=== PATIENT | female | born 1975 | race Caucasian/White ===

== ENCOUNTER 2020-10-16 18:40 | Observation (INO) ==
[2020-10-16 21:33] LABS: ABG Base Excess 1.7 MMOL/L (-2.5-2.5); ABG HCO3 25.9 MMOL/L (20-26); ABG Oxygen Saturation 97.1 % (95-100); ABG PCO2 34.2 MM HG (35-48); ABG PH 7.469 (7.35-7.45); ABG PO2 82.6 MM HG (80-95); ABG TCO2 21.5 MMOL/L (23-27); Allen Test Positive; Pt O2 Delivery Device Room Air
[2020-10-16 21:37] LABS: Basophils # 0.1 10*3/uL (0.0-0.2); Basophils % 0.6 % (0.0-0.8); Eosinophils # 0.1 10*3/uL (0.0-0.87); Eosinophils % 1.1 % (0.00-10.9); Hematocrit 43.6 VOL% (35.7-47.0); Hemoglobin 14.2 GM/DL (12.0-16.0); Immature Granulocytes % 0.4 %; Immature Granulocytes Absolute 0.05 #; Lymphocytes # 2.5 10*3/uL (1.4-4.0); Lymphocytes % 20.8 % (21.3-54.2); Mean Corpuscular HGB Conc 32.6 GM/DL (32-36); Mean Corpuscular Volume 80.1 FL (87-102); Mean Platelet Volume 9.2 FL (9.6-12.0); Monocytes % 5.8 % (1.7-12.7); Neutrophils % 71.3 % (38.7-73.9); Platelet Count 277 T/CUMM (130-400); Red Blood Count 5.44 MC/CUMM (3.8-5.5); Red Cell Distribution Width 13.1 % (9.3-17.3); White Blood Count 12.1 T/CUMM (4-12)
[2020-10-16 21:55] LABS: Bilirubin,Urine Negative (Negative); Blood, Urine Small mg/dL (Negative); Glucose,Urine (UA) Negative (Negative); Ketones,Urine Negative (Negative); Mucus,Urine Occasional /LPF (Occasional); Nitrite,Urine Negative (Negative); Protein,Urine Negative; RBC,Urine 3 /HPF (0-4); Squamous Epithelial Cell,Urine Occasional /HPF (0-10); Urine Appearance CLEAR (Clear); Urine Color Yellow (Yellow); Urine Specific Gravity 1.006 (1.001-1.035); Urine Urobilinogen < 2.0 EU/DL (0.2-1.0)
[2020-10-16 22:08] LABS: Albumin 3.5 G/DL (3.4-5.0); Bilirubin,Total 0.6 MG/DL (0.20-1.00); Osmolality,Calculated 274.5 MOS/KG (273-304); Potassium 3.5 MMOL/L (3.5-5.1); Total Protein 7.8 G/DL (6.4-8.2)
[2020-10-16] MEDS ORDERED: SODIUM CHLORIDE 0.9% 1,000 ML IV STA (22:20)
[2020-10-16] MEDS ORDERED: methylPREDNISolone SOD SUC 125 MG/2 ML VIAL IV STA (22:30)
[2020-10-16 22:34] LABS: PT Patient Result 10.9 SECS (10.5-12.0); Partial Thromboplastin Time 30.2 SECS (23.9-33.8)
[2020-10-16] MEDS ORDERED: LEVALBUTEROL 0.63 MG/3 ML NEB RESP TX ONE (22:37)
[2020-10-16] MEDS ORDERED: methylPREDNISolone SOD SUC 125 MG/2 ML VIAL ONE (22:45)
[2020-10-16] MEDS ORDERED: LEVALBUTEROL 1.25 MG/3 ML NEB RESP TX PRN (23:10)
[2020-10-16] MEDS ORDERED: ARFORMOTEROL 15 MCG/2 ML NEB RESP TX STA (23:11)
[2020-10-16] MEDS ORDERED: BUDESONIDE 0.5 MG/2 ML NEB RESP TX STA (23:11)
[2020-10-17] MEDS ORDERED: NICOTINE 21 MG/24 HR PATCH TRANSDERM PRN (00:56)
[2020-10-17] MEDS ORDERED: DEXTROSE 50% 25 GM/50 ML VIAL IV PRN ×2 (00:56→07:35)
[2020-10-17] MEDS ORDERED: ZALEPLON 5 MG CAPSULE PO PRN (00:56)
[2020-10-17] MEDS ORDERED: guaiFENesin/DM ER 600-30 MG TABLET PO PRN (00:56)
[2020-10-17] MEDS ORDERED: GLUCAGON 1 MG VIAL IM PRN (00:56)
[2020-10-17] MEDS ORDERED: ACETAMINOPHEN 325 MG TABLET PO PRN (00:56)
[2020-10-17] MEDS ORDERED: MORPHINE 2 MG/1 ML SYRINGE IV PRN (00:56)
[2020-10-17] MEDS ORDERED: ONDANSETRON 4 MG/2 ML VIAL IV PRN (00:56)
[2020-10-17] MEDS ORDERED: BISACODYL 5 MG TABLET PO PRN (00:56)
[2020-10-17] MEDS ORDERED: diphenhydrAMINE CAP 25 MG CAPSULE PO PRN (00:56)
[2020-10-17] MEDS ORDERED: hydrALAZINE 20 MG/1 ML VIAL IV PRN (00:56)
[2020-10-17] MEDS: LEVALBUTEROL 1.25 MG/3 ML NEB RESP TX SCH ×2 (02:05→07:25)
[2020-10-17] MEDS: ENOXAPARIN 40 MG/0.4 ML SYRINGE SUBCUT SCH (02:42)
[2020-10-17] MEDS: methylPREDNISolone SOD SUC 40 MG/1 ML VIAL IV SCH ×4 (02:42→20:40)
[2020-10-17 05:45] LABS: Basophils % 0.2 % (0.0-0.8); Eosinophils % 0.1 % (0.00-10.9); Hematocrit 42.1 VOL% (35.7-47.0); Hemoglobin 13.5 GM/DL (12.0-16.0); Immature Granulocytes % 0.7 %; Immature Granulocytes Absolute 0.06 #; Lymphocytes # 0.8 10*3/uL (1.4-4.0); Lymphocytes % 9.1 % (21.3-54.2); Mean Corpuscular HGB Conc 32.1 GM/DL (32-36); Mean Corpuscular Volume 80.8 FL (87-102); Mean Platelet Volume 9.7 FL (9.6-12.0); Neutrophils % 88.9 % (38.7-73.9); Platelet Count 233 T/CUMM (130-400); Red Blood Count 5.21 MC/CUMM (3.8-5.5); White Blood Count 8.8 T/CUMM (4-12)
[2020-10-17 06:14] LABS: Calcium 8.7 MG/DL (8.5-10.1); Osmolality,Calculated 281.7 MOS/KG (273-304); Potassium 3.8 MMOL/L (3.5-5.1)
[2020-10-17] MEDS ORDERED: ARFORMOTEROL 15 MCG/2 ML NEB RESP TX SCH (07:00)
[2020-10-17] MEDS ORDERED: BUDESONIDE 0.5 MG/2 ML NEB RESP TX SCH (07:00)
[2020-10-17] MEDS: DULoxetine 30 MG CAPSULE PO SCH (09:33)
[2020-10-17] MEDS: PANTOPRAZOLE 40 MG TABLET PO SCH (09:33)
[2020-10-17] MEDS: SODIUM CHLORIDE 0.9% 1,000 ML IV SCH ×2 (09:41→20:39)
[2020-10-17] MEDS: INSULIN REGULAR 100 UNIT/ML SUBCUT SCH ×3 (11:44→20:39)
[2020-10-17] MEDS ORDERED: IPRATROPIUM 500 MCG/2.5 ML NEB RESP TX SCH ×2 (13:00→15:00)
[2020-10-17] MEDS ORDERED: ALBUTEROL 2.5 MG/3 ML NEB RESP TX SCH (13:00)
[2020-10-17] MEDS: ALBUTEROL/IPRATROPIUM 3 ML NEB RESP TX SCH ×2 (13:20→20:00)
[2020-10-17] MEDS: FLUTICASONE/SALMETEROL 100-50 DISKUS 14 DOSE INH SCH (20:44)
[2020-10-17] MEDS ORDERED: MONTELUKAST 10 MG TABLET PO SCH (21:00)
[2020-10-18] MEDS: ALBUTEROL/IPRATROPIUM 3 ML NEB RESP TX SCH ×3 (00:17→14:08)
[2020-10-18] MEDS: ENOXAPARIN 40 MG/0.4 ML SYRINGE SUBCUT SCH (00:20)
[2020-10-18 04:39] LABS: Calcium 8.2 MG/DL (8.5-10.1); Osmolality,Calculated 287.3 MOS/KG (273-304); Potassium 3.7 MMOL/L (3.5-5.1)
[2020-10-18] MEDS: SODIUM CHLORIDE 0.9% 1,000 ML IV SCH (06:04)
[2020-10-18] MEDS: FLUTICASONE/SALMETEROL 100-50 DISKUS 14 DOSE INH SCH (09:39)
[2020-10-18] MEDS: PANTOPRAZOLE 40 MG TABLET PO SCH (09:40)
[2020-10-18] MEDS: DULoxetine 30 MG CAPSULE PO SCH (09:40)
[2020-10-18] MEDS: INSULIN REGULAR 100 UNIT/ML SUBCUT SCH ×3 (09:40→16:17)
[2020-10-18] MEDS: methylPREDNISolone SOD SUC 40 MG/1 ML VIAL IV SCH (09:41)
[2020-10-18 16:04] VITALS: BP 136/85
== END 2020-10-18 17:06 | disposition home or self-care (01) ==
LOC: N.ED 18:40 → N.EDINP 18:40 → SUATTDRO 10-17 00:56 → N.3E 10-17 02:10
PROVIDERS: ADMIT Phlebology; ATTEND Internal Medicine